=== PATIENT | female | born 1940 ===

== ENCOUNTER 2021-02-12 01:06 | Inpatient (IN) | payer MEDICARE, OTHER ==
[2021-02-12] VITALS (13 sets, daily range): BP systolic 110–138; BP diastolic 42–72; PULSE 58–88; TEMP 98–98.4
[~2021-02-12] VITALS: Ht 160 cm; Wt 43.9 kg
--- NOTE | 2021-02-12 02:30 | NUR ---
PATIENT GOT TO ROOM 324 FROM [facility]. PATIENT IS ALERT BUT ONLY ORIENTED TO SELF. STATED IT WAS APRIL 1970 AND THAT WE WERE IN HAINES. PATIENT HAS FRACTURE TO RIGHT HIP. PATIENT HAS MCWILLIAMS WITH TEA COLORED AND CLEAR OUTPUT. PATIENT HAS IV TO RIGHT HAND. PATIENT IS POOR HISTORIAN, ADMISSIONS ASSESSMENT DONE MUCH COULD BE. PATIENT DOES HAVE SOME SWELLING TO RIGHT LEG. PATIENT DENIES PAIN OR FURTHER NEEDS AT THIS TIME. PATIENT IS NPO. CALL LIGHT WITHIN REACH. ORIENTED TO ROOM. HEAD TO TOE ASSESSMENT COMPLETE.
[2021-02-12] MEDS ORDERED: SINEMET 25/101 UDTAB PO ×2 (03:06→03:09)
[2021-02-12] MEDS ORDERED: CENTRUM SILVER1 TAB PO (03:07)
[2021-02-12] MEDS ORDERED: OMEGA-3 1000 MG1 CAP PO (03:07)
[2021-02-12] MEDS ORDERED: TYLENOL 500MG500 MG PO (03:10)
--- NOTE | 2021-02-12 06:03 | NUR ---
PATIENT SLEPT MOST OF REST OF NIGHT. DENIES NEEDS OR PAIN RIGHT NOW. WILL REPORT TO DAYSHIFT.
[2021-02-12 06:35] LABS: BASO # 0.1 K/mm3 (0.0-0.2); BASO % 0.9 % (0.0-2.0); EOS # 0.2 K/mm3 (0.0-0.7); EOS % 2.7 % (0-4.0); GRAN # 3.9 K/mm3 (1.4-6.5); GRAN % 66.8 % (42.2-75.2); HEMOGLOBIN 10.5 g/dl (12.5-16.0); LYMPH # 1.2 K/mm3 (1.2-3.4); LYMPH % 20.7 % (20.0-51.0); MEAN CELL VOLUME 99 fl (80.0-100.0); MEAN CORPUSCULAR HEMOGLOBIN 33 pg (27.0-31.0); MEAN CORPUSCULAR HGB CONC 33 g/dl (33.0-37.0); MEAN PLATELET VOLUME 11.9 fl (7.4-10.4); MONO # 0.5 K/mm3 (0.1-0.6); MONO % 8.6 % (1.7-9.3); PLATELET COUNT 146 K/mm3 (130-400)
[2021-02-12 06:49] LABS: HEMATOCRIT 31.6 % (37.0-47.0)
[2021-02-12 06:59] LABS: CALCIUM 9.8 mg/dL (8.4-10.2); CREATININE, serum 0.6 mg/dL (0.57-1.11); POTASSIUM 3.9 mmol/L (3.5-4.5)
--- NOTE | 2021-02-12 07:00 | NUR ---
Pt resting in bed, salinas in place. Pt was non verbal during shift change. Bed alarm on
--- NOTE | 2021-02-12 07:24 | NUR ---
Patient is lying in bed. She is pleasant and reacts to being talked to. However, she appears very tired and falls asleep in between assessements. Therapy brought in incentive spirometer, pt unable to stay awake long enough for instructions.
--- NOTE | 2021-02-12 13:32 | NUR ---
Pt off the floor for surgery
--- NOTE | 2021-02-12 15:58 | NUR ---
Tenderizer Tender met with patient, patient's Kaushik, and patient's daughter Selina to discuss discharge planning. Patient lives in [place], [place] with her and sees Dr. Carballo for primary care. Patient obtains medications from [facility] in [place] and has a walker and commode at home. Patient has been receiving Home Health from [facility] and advised that Kaushik assists her with ADLS. Patient believes she has a DPOA-HC designating Kaushik but does not have a copy with her. FRANCISCO advised that patient will likely need rehab. Patient and family are agreeable to this if needed. Patient would like to go to [facility]. SW contacted [facility] and faxed referral. SW was advised that they are full at this time but that they could re-evaluate Monday. FRANCISCO followed up with patient's , Kaushik as patient was in surgery. Kaushik advised their second preference would be [facility]. FRANCISCO faxed referral. Discharge Plan: [facility] or [facility].
--- NOTE | 2021-02-12 16:30 | NUR ---
Pt back on the floor from surgery. She is alert, although confused. She is very slow to answer questions, which is her normal. is present in the room and she is responding appropriately to him. SCDs and Juan vivas on. Black to dependent drainge. Incision x2 to the right hip with gauze and tegaderm which is CDI
--- NOTE | 2021-02-12 20:00 | NUR ---
PATIENT IS ALERT TO SELF. AT BEDSIDE. PATIENT HAS 2 INCISIONS TO RIGHT HIP COVERED WITH GAUZE AND TEGADERM. PATIENT HAS TEDS AND SCDS TO BILATERAL LOWER EXTREMITIES. PATIENT HAS ICE TO RIGHT HIP. PATIENT HAS BED ALARM ON. PATIENT HAS MCWILLIAMS WITH YELLOW AND CLEAR OUTPUT. PATIENT HAS IV TO RIGHT WRIST WITH FLUIDS RUNNING AT 75ML. PATIENT HAS RIGHT LEG ELEVATED WITH PILLOW AND PATIENT ATE ALL OF DINNER, TOLERATING FOOD WELL. PATIENT DENIES PAIN OR FURTHER NEEDS AT THIS TIME. CALL LIGHT WITHIN REACH. HEAD TO TOE ASSESSMENT COMPLETE.
[2021-02-13] VITALS (7 sets, daily range): BP systolic 121–138; BP diastolic 48–67; PULSE 68–97; TEMP 97.9–98.6
--- NOTE | 2021-02-13 03:47 | NUR ---
PATIENT IN ROOM UNDRESSING SELF AND PULLING AT CATHETER AND IV. PATIENT REORIENTED AND BACK TO SLEEP.
--- NOTE | 2021-02-13 06:23 | NUR ---
PATIENT SLEPT ON AND OFF ALL NIGHT. CONFUSED THROUGHOUT NIGHT BUT EASY TO REORIENT. PATIENT DENIES FURTHER NEEDS AT THIS TIME. WILL REPORT TO DAYSHIFT.
[2021-02-13 07:19] LABS: BASO % 0.6 % (0.0-2.0); EOS # 0.2 K/mm3 (0.0-0.7); EOS % 3.4 % (0-4.0); GRAN # 3.6 K/mm3 (1.4-6.5); GRAN % 73.1 % (42.2-75.2); LYMPH # 0.7 K/mm3 (1.2-3.4); LYMPH % 14.5 % (20.0-51.0); MEAN CELL VOLUME 100 fl (80.0-100.0); MEAN CORPUSCULAR HGB CONC 33 g/dl (33.0-37.0); MEAN PLATELET VOLUME 11.7 fl (7.4-10.4); MONO # 0.4 K/mm3 (0.1-0.6); MONO % 8.2 % (1.7-9.3); PLATELET COUNT 147 K/mm3 (130-400); RED BLOOD COUNT 2.94 M/mm3 (4.10-5.30); REDCELL DISTRIBUTION WIDTH-CV 12.9 % (11.5-14.5)
[2021-02-13 07:23] LABS: HEMATOCRIT 29.3 % (37.0-47.0); HEMOGLOBIN 9.6 g/dl (12.5-16.0); MEAN CORPUSCULAR HEMOGLOBIN 33 pg (27.0-31.0)
[2021-02-13 07:35] LABS: CREATININE, serum 0.54 mg/dL (0.57-1.11); POTASSIUM 3.8 mmol/L (3.5-4.5)
--- NOTE | 2021-02-13 18:14 | NUR ---
Patient alert, confused. RLE with dressing CDI, no redness or drainage noted. Pulses palpable to RLE, sensation intact. ADRIAN hose and SCDs in place. Black catheter in place, patent, draining clear yellow urine. No c/o at this time.
--- NOTE | 2021-02-14 00:58 | NUR ---
PT APPEARS TO BE SLEEPING IN BED @ THIS TIME. BILATERAL MITTS ARE ON PT R/T PT ATTEMPTS TO PULL ON MCWILLIAMS CATHETER. PT HAD TAKEN MULTIPLE STATLOCKS OFF EARLIER IN NIGHT ET PT'S SPOUSE HAD REPORTED PT REPEATEDLY PULLING ON CATHETER. PT HAD DENIED HIP PAIN BUT STATED THAT HER CROTCH HURT. CATH CARE WAS COMPLETED ET CATHETER CONTINUES TO DRAIN CLOUDY YELLOW URINE. STATLOCK REPLACED. PT'S SPOUSE REMAINS @ BEDSIDE. PT IS CONFUSED ET BECOMES EASILY AGITATED ET RESTLESS. PT'S SPOUSE IS ABLE TO ASSIST IN CALMING PT. DRESSING ON RIGHT HIP IS CDI, ICE PACK ON. RESPIRATIONS UNLABORED. BED ALARM ON, CALL LIGHT WITHIN REACH.
[2021-02-14 03:53] VITALS: BP 122/59; PULSE 69; TEMP 98.4
--- NOTE | 2021-02-14 05:21 | NUR ---
PT IS AWAKE IN BED, SPOUSE IS @ BEDSIDE. PT IS PLEASANT, CONFUSED, DENIES ANY PAIN. PT STATES "WHAT SHOULD I DO". MITTS ARE ON PT'S BILATERAL HANDS. SPOUSE STATES THAT HE JUST PUT THEM BACK ON PT BECAUSE SHE HAD TAKEN THEM OFF, SHE WAS PULLING @ MCWILLIAMS AGAIN. MCWILLIAMS CATHETER CONTINUES TO DRAIN CLOUDY YELLOW URINE. FRESH ICE PACK APPLIED TO PT'S RIGHT HIP. RESPIRATIONS UNLABORED. BED ALARM ON, CALL LIGHT WITHIN REACH.
--- NOTE | 2021-02-14 07:20 | NUR ---
REPORT RECEIVED FROM BUBBA PATEL. PT AWAKE RESTING IN BED. IN ROOM. PT DENIES PAIN. NO NEEDS AT THIS TIME. CALL WATSON IN REACH.
[2021-02-14 07:33] LABS: CALCIUM 9.3 mg/dL (8.4-10.2); CREATININE, serum 0.62 mg/dL (0.57-1.11)
[2021-02-14 07:47] LABS: BASO # 0.1 K/mm3 (0.0-0.2); BASO % 1.2 % (0.0-2.0); EOS # 0.2 K/mm3 (0.0-0.7); EOS % 4.5 % (0-4.0); GRAN # 3.6 K/mm3 (1.4-6.5); GRAN % 70.8 % (42.2-75.2); LYMPH # 0.8 K/mm3 (1.2-3.4); MEAN CELL VOLUME 100 fl (80.0-100.0); MEAN CORPUSCULAR HGB CONC 32 g/dl (33.0-37.0); MEAN PLATELET VOLUME 11.4 fl (7.4-10.4); MONO # 0.4 K/mm3 (0.1-0.6); MONO % 7.1 % (1.7-9.3); PLATELET COUNT 168 K/mm3 (130-400); RED BLOOD COUNT 3.05 M/mm3 (4.10-5.30); REDCELL DISTRIBUTION WIDTH-CV 13.1 % (11.5-14.5)
[2021-02-14 07:57] VITALS: BP 131/54; PULSE 73; TEMP 98.1
[2021-02-14 08:00] LABS: HEMATOCRIT 30.4 % (37.0-47.0); HEMOGLOBIN 9.8 g/dl (12.5-16.0); MEAN CORPUSCULAR HEMOGLOBIN 32 pg (27.0-31.0)
--- NOTE | 2021-02-14 10:42 | NUR ---
PT INDWELLING CATHETER REMOVED PER MD ORDER
[2021-02-14 12:04] VITALS: BP 112/50; PULSE 67; TEMP 98.5
[2021-02-14 15:38] VITALS: BP 126/80; PULSE 81; TEMP 98
--- NOTE | 2021-02-14 17:24 | NUR ---
PT HAD UNEVENTFUL SHIFT. RESTING IN BED MOST OF THE DAY. PT SLEPT OFF AND ON FOR A FEW HOURS. PT USED INCENTIVE SPIROMETER EVERY HOUR WHILE AWAKE. PT DENIES PAIN. NO NEEDS AT THIS TIME. CALL WATSON IN REACH. IN ROOM. BED ALARM ON
[2021-02-14 20:03] VITALS: BP 118/44; PULSE 82; TEMP 98.3
[2021-02-15] VITALS: BP 140/55; PULSE 81; TEMP 97.4
[2021-02-15 04:00] VITALS: BP 154/59; PULSE 81; TEMP 97.6
--- NOTE | 2021-02-15 05:38 | NUR ---
PT IS AWAKE @ THIS TIME. PT HAS SLEPT ON ET OFF THROUGHOUT NIGHT ET BEEN INCONTINENT OF URINE X2. PT IS CLEANED, LINENS CHANGED, ET REPOSITIONED WITH 2 ASSIST. IS @ BEDSIDE. PT IS OFFERED DRINK OF WATER ET DRINKS WITH ASSISTANCE. PT DENIES PAIN BUT DOES GRIMACE WHEN BEING ASSISTED TO MOVE IN BED. PT IS PLEASANT ET REMAINS CONFUSED. FRESH ICE PACK APPLIED TO RIGHT HIP. RESPIRATIONS UNLABORED. CALL LIGHT WITHIN REACH, BED ALARM ON.
[2021-02-15 07:14] LABS: BASO % 0.5 % (0.0-2.0); EOS # 0.2 K/mm3 (0.0-0.7); EOS % 3.6 % (0-4.0); GRAN # 4.2 K/mm3 (1.4-6.5); GRAN % 72.4 % (42.2-75.2); LYMPH # 0.9 K/mm3 (1.2-3.4); LYMPH % 16.1 % (20.0-51.0); MEAN CELL VOLUME 99 fl (80.0-100.0); MEAN CORPUSCULAR HGB CONC 33 g/dl (33.0-37.0); MEAN PLATELET VOLUME 11.2 fl (7.4-10.4); MONO # 0.4 K/mm3 (0.1-0.6); MONO % 7.1 % (1.7-9.3); PLATELET COUNT 190 K/mm3 (130-400); RED BLOOD COUNT 2.98 M/mm3 (4.10-5.30); REDCELL DISTRIBUTION WIDTH-CV 13.2 % (11.5-14.5)
[2021-02-15 07:16] LABS: HEMATOCRIT 29.6 % (37.0-47.0); HEMOGLOBIN 9.7 g/dl (12.5-16.0); MEAN CORPUSCULAR HEMOGLOBIN 33 pg (27.0-31.0)
--- NOTE | 2021-02-15 07:20 | NUR ---
Pt reported that she thought she needed to have a bowel movement during shift change. Assisted pt to the commode. She did require 2 assist and did little effort to move her feet. present in the room. She did void, but was not able to have a bowel movement. reported that she had a large bowel movement yesterday.
[2021-02-15 07:28] VITALS: BP 147/54; PULSE 80; TEMP 97.7
[2021-02-15 07:32] LABS: CALCIUM 9.4 mg/dL (8.4-10.2); CREATININE, serum 0.63 mg/dL (0.57-1.11); POTASSIUM 4.5 mmol/L (3.5-4.5)
[2021-02-15] MEDS ORDERED: ASPI325T6 PO (09:59)
[2021-02-15] MEDS ORDERED: TYLENOL 500MG500 MG PO (10:00)
[2021-02-15] MEDS ORDERED: OSCAL 500 TAB500 MG PO (10:01)
[2021-02-15] MEDS ORDERED: VITAMIN C500 MG PO (10:01)
--- NOTE | 2021-02-15 10:21 | NUR ---
Jasmine, at [facility], left a voicemail with social work coordinator, Chela. Jasmine reports they are completely full and unable to take the patient. The hospitalist notified FRANCISCO that they rounded on the patient this morning and the patient's is now refusing SNF. The clinical team would be ready to discharge the patient today. FRANCISCO contacted the patient's daughter, Selina, and updated her on the above. Selina is in agreement to rehab and knows the patient will benefit from rehab. FRANCISCO then met with the patient, her , and had Selina on speaker phone. OT was present and working with the patient. SW addressed the clinical team's recommendation for SNF and how it would benefit the patient. The patient's , Kaushik, reports that the patient does not do well in new places and has not been getting any sleep at night. He reports that he can take care of her. Kaushik appeared upset. SW provided support and reviewed the benefits of SNF again. Kaushik was agreeable to SNF at [facility], but still appeared upset about the decision. FRANCISCO contacted Erica at [facility]. Erica reports that they are able to take the patient today. She states that they are working on a transport time. OT then approached FRANCISCO. OT reports that he was able to talk to the patient and her some more and the is now much more open to rehab. FRANCISCO followed up with the patient and Kaushik. Kaushik confirm that he is agreeable to SNF now. He reports that he will head home now to pack up some of the patient's belongings. He just requests that [facility] give him a call, once the patient gets there. FRANCISCO presented and read the IM form outloud to Kaushik. Kaushik verbalized understanding and signed the form. FRANCISCO contacted Erica, at [facility], and informed her of the 's request. Erica reports that they will be at the hospital around 1230 to tack picker the patient. FRANCISCO contacted and updated the patient's daughter, Selina. Selina is in agreement to the plan. The patient is to discharge today, 02/15, to [facility] for a skilled stay. Transportation was scheduled at 1230, via [facility]. FRANCISCO informed the patient's daughter (Selina) and RN of the time. They were both agreeable to the time. No additional needs at this time.
--- NOTE | 2021-02-15 11:01 | NUR ---
Pt resting with eyes closed, even non labored breathing
[2021-02-15 11:54] VITALS: BP 113/51; PULSE 78; TEMP 97.8
--- NOTE | 2021-02-15 12:58 | NUR ---
Dressing to right hip has been changed. Incisions well approximated with no drainge or redness noted. INT removed from right wrist. Assisted pt to the commode and she did void. Pt does not have any clothes here, being transferred with hospital gown. Juan vivas on. Dentures in mouth and necklace on. Pt in wheelchair and departing at this time.
--- NOTE | 2021-02-15 13:13 | NUR ---
Report called to [facility]
== END 2021-02-15 13:13 | DRG 482 ==
LOC: SURG 01:06
PROVIDERS: Nurse Practitioner Family; Orthopaedic Surgery; Physician Assistant; ADMIT Internal Medicine
PROC: 0QS606Z Reposition Right Upper Femur with Intramedullary Internal Fixation Device, Open Approach (ICD-10-PCS; principal; 2021-02-12 13:00)
DX: S72.141A Displaced intertrochanteric fracture of right femur, initial encounter for closed fracture (principal); W19.XXXA Unspecified fall, initial encounter; Y92.009 Unspecified place in unspecified non-institutional (private) residence as the place of occurrence of the external cause; G20 Parkinson's disease; I10 Essential (primary) hypertension; M81.0 Age-related osteoporosis without current pathological fracture; D69.6 Thrombocytopenia, unspecified; D64.9 Anemia, unspecified; F02.80 Dementia in other diseases classified elsewhere, unspecified severity, without behavioral disturbance, psychotic disturbance, mood disturbance, and anxiety
CPT/HCPCS: 99223-AI; 99232-AI; 99239; A9284; C1713; J0690; J2250; J2704; J2795